=== PATIENT | female | born 1995 | race Caucasian/White ===

== ENCOUNTER 2024-02-21 09:15 | Outpatient (OUT) | payer OTHER, SELFPAY ==
--- NOTE | 2024-02-21 09:27 | XR_ITS ---
The [address] [address] Patient Name: CIERRA MELARA MRN: [id number] date: 1995 Sex: F Assigned Patient Location: [facility] Current Patient Location: [facility] Accession/Order Number: [id number] Exam Date: 02/21/2024 09:33 Report Date: 02/21/2024 10:23 At the request of: JOSE MANUEL PERSAUD Procedure: XR wrist LT min 3V PROCEDURE: XR hand LT min 3V, XR wrist LT min 3V COMPARISON: None. HISTORY: Injury of left hand FINDINGS: BONES:No fracture, acute abnormality, or significant arthropathy. SOFT TISSUES:Negative. No visible soft tissue swelling. EFFUSION:None visible. OTHER: Negative. XR/XR wrist LT min 3V IMPRESSION: No acute abnormality of the wrist or hand Electronically authenticated by: LESLY CASTELLANOS Date: 02/21/2024 10:23
--- NOTE | 2024-02-21 09:28 | XR_ITS ---
The [address] [address] Patient Name: CIERRA MELARA MRN: [id number] date: 1995 Sex: F Assigned Patient Location: [facility] Current Patient Location: [facility] Accession/Order Number: [id number] Exam Date: 02/21/2024 09:33 Report Date: 02/21/2024 10:23 At the request of: JOSE MANUEL PERSAUD Procedure: XR hand LT min 3V PROCEDURE: XR hand LT min 3V, XR wrist LT min 3V COMPARISON: None. HISTORY: Injury of left hand FINDINGS: BONES:No fracture, acute abnormality, or significant arthropathy. SOFT TISSUES:Negative. No visible soft tissue swelling. EFFUSION:None visible. OTHER: Negative. XR/XR hand LT min 3V IMPRESSION: No acute abnormality of the wrist or hand Electronically authenticated by: LESLY CASTELLANOS Date: 02/21/2024 10:23
== END 2024-02-21 09:16 | disposition home or self-care (01) ==
LOC: RAD 09:21
PROVIDERS: PCP Nurse Practitioner Family; Visit Provider Nurse Practitioner Family
DX: M25.532 Pain in left wrist (principal); M79.642 Pain in left hand; S69.92XA Unspecified injury of left wrist, hand and finger(s), initial encounter
CPT/HCPCS: 73110; 73130